=== PATIENT | male | born 1965 | race African-American/Black ===

== ENCOUNTER 2017-02-15 16:03 | Emergency (ER) | payer OTHER ==
[~2017-02-15 16:03] MED LIST: BACTRIM DS TABL1 TA1 PO; LORTAB 5/500 TA1 TA2 PO
== END 2017-02-15 19:00 | disposition home or self-care (01) ==
LOC: CED 16:03
DX: H66.91 Otitis media, unspecified, right ear (principal); J30.9 Allergic rhinitis, unspecified; I10 Essential (primary) hypertension
CPT/HCPCS: 99282